=== PATIENT | female | born 1995 | race Caucasian/White ===

== ENCOUNTER → 2025-02-18 | Outpatient (CLI) | payer MEDICAID ==
[2025-02-18 10:13] LABS: BASO # 0.1 10*3/uL (0.0-0.1); BASO % 0.6 % (0.0-1.0); EOS # 0.1 10*3/uL (0.0-0.4); HEMATOCRIT 41.9 % (37.0-47.0); MEAN CELL VOLUME 97.4 fl (81.0-99.0); MEAN CORPUSCULAR HGB 32.8 pg (27.0-31.0); MEAN CORPUSCULAR HGB CONC 33.7 g/dl (33.0-37.0); MEAN PLATELET VOLUME 8.5 fl (9.6-12.3); MONO # 0.6 10*3/uL (0.1-1.0); MONO % 6.1 % (3.0-9.0); NEUT # 7.4 10*3/uL (2.3-7.9); NEUT % 74.5 % (47.0-73.0); PLATELET COUNT AUTOMATED 326 10*3/uL (130-400); RED CELL DISTRI WIDTH 11.9 % (0-14.5); WHITE BLOOD COUNT 9.9 10*3/uL (4.8-10.8)
[2025-02-18 10:51] LABS: ALKALINE PHOSPHATASE 84 U/L (46-116); BUN 15 mg/dl (9-23); CHLORIDE 105 mmol/L (98-107); CHOLESTEROL 126 mg/dL (<200); LDL CHOLESTEROL 55 mg/dL (9-159); SGPT/ALT 420 U/L (5-49)
== END | disposition home or self-care (01) ==
LOC: LAB 09:46
PROVIDERS: ATTEND Registered Nurse
DX: Z13.1 Encounter for screening for diabetes mellitus (principal); Z11.59 Encounter for screening for other viral diseases; Z13.220 Encounter for screening for lipoid disorders

== ENCOUNTER → 2025-03-06 | Outpatient (CLI) | payer MEDICAID ==
[2025-03-06 10:25] LABS: BASO % 0.6 % (0.0-1.0); EOS # 0.1 10*3/uL (0.0-0.4); EOS % 1.9 % (1.0-4.0); HEMATOCRIT 40.7 % (37.0-47.0); MEAN CELL VOLUME 98.1 fl (81.0-99.0); MEAN CORPUSCULAR HGB 32.5 pg (27.0-31.0); MEAN CORPUSCULAR HGB CONC 33.2 g/dl (33.0-37.0); MEAN PLATELET VOLUME 8.7 fl (9.6-12.3); MONO # 0.5 10*3/uL (0.1-1.0); MONO % 8.5 % (3.0-9.0); NEUT # 4.2 10*3/uL (2.3-7.9); NEUT % 65.3 % (47.0-73.0); PLATELET COUNT AUTOMATED 331 10*3/uL (130-400); RED BLOOD COUNT 4.15 10*6/uL (4.10-5.10); RED CELL DISTRI WIDTH 11.9 % (0-14.5); WHITE BLOOD COUNT 6.4 10*3/uL (4.8-10.8)
[2025-03-06 10:54] LABS: ALKALINE PHOSPHATASE 97 U/L (46-116); BUN 17 mg/dl (9-23); CHLORIDE 105 mmol/L (98-107); CHOLESTEROL 133 mg/dL (<200); LDL CHOLESTEROL 58 mg/dL (9-159); POTASSIUM 4.1 mmol/L (3.4-5.1); SGPT/ALT 546 U/L (5-49); TOTAL PROTEIN 7.6 gm/dL (6.0-8.0)
[2025-03-06 11:09] LABS: VITAMIN D, 25-HYDROXY 23.3 ng/mL (30-100)
== END | disposition home or self-care (01) ==
LOC: LAB 09:54
PROVIDERS: ATTEND Registered Nurse
DX: Z11.59 Encounter for screening for other viral diseases (principal); Z13.1 Encounter for screening for diabetes mellitus; F19.20 Other psychoactive substance dependence, uncomplicated; Z13.220 Encounter for screening for lipoid disorders; Z91.410 Personal history of adult physical and sexual abuse

== ENCOUNTER → 2025-04-01 | Outpatient (CLI) | payer MEDICAID ==
[2025-04-01 09:32] LABS: ALKALINE PHOSPHATASE 88 U/L (46-116); BUN 13 mg/dl (9-23); CHLORIDE 106 mmol/L (98-107); SGPT/ALT 356 U/L (5-49); TOTAL PROTEIN 7.5 gm/dL (6.0-8.0)
== END | disposition home or self-care (01) ==
LOC: LAB 08:31
PROVIDERS: ATTEND Registered Nurse
DX: B19.20 Unspecified viral hepatitis C without hepatic coma (principal); R74.8 Abnormal levels of other serum enzymes; F11.10 Opioid abuse, uncomplicated; Z11.59 Encounter for screening for other viral diseases

== ENCOUNTER → 2025-04-28 | Outpatient (CLI) | payer MEDICAID ==
[2025-04-28 09:53] LABS: ALKALINE PHOSPHATASE 94 U/L (46-116); BUN 16 mg/dl (9-23); CHLORIDE 107 mmol/L (98-107); POTASSIUM 3.8 mmol/L (3.4-5.1); SGPT/ALT 377 U/L (5-49); TOTAL PROTEIN 7.3 gm/dL (6.0-8.0)
== END | disposition home or self-care (01) ==
LOC: LAB 08:08
PROVIDERS: ATTEND Registered Nurse
DX: R74.8 Abnormal levels of other serum enzymes (principal); F11.10 Opioid abuse, uncomplicated

== ENCOUNTER → 2025-05-27 | Outpatient (CLI) | payer MEDICAID ==
[2025-05-27 09:07] LABS: BUN 9 mg/dl (9-23); SGPT/ALT 314 U/L (5-49)
== END | disposition home or self-care (01) ==
LOC: LAB 07:59
PROVIDERS: ATTEND Registered Nurse
DX: R74.8 Abnormal levels of other serum enzymes (principal); F11.10 Opioid abuse, uncomplicated